=== PATIENT | male | born 1990 | race Caucasian/White ===

== ENCOUNTER 2022-07-28 06:34 | Emergency (ER) | payer OTHER ==
[2022-07-28] MEDS ORDERED: Lidocaine 1% PF 2 ML SDV ONE (10:05)
[2022-07-28] MEDS ORDERED: Doxycycline 100 MG Cap PO ONE (10:05)
[2022-07-28] MEDS ORDERED: cefTRIAXone 250 MG Vial IM ONE (10:05)
== END 2022-07-28 10:25 ==
LOC: MW.ED 06:34
DX: N50.811 Right testicular pain (principal)
CPT/HCPCS: 76870; 93976; 96372; 99284; A9270; J0696; 99283

== ENCOUNTER 2022-08-28 09:01 | Emergency (ER) | payer OTHER ==
[2022-08-28] MEDS ORDERED: Diphtheria,Pertussis(Acell),Tetanus Vaccine 0.5 ML Syringe IM ONE (09:18)
[2022-08-28 10:23] LABS: CORONAVIRUS COVID-19 NAA NEGATIVE (NEGATIVE); INFLUENZA A NAA NEGATIVE (NEGATIVE); INFLUENZA B NAA NEGATIVE (NEGATIVE)
== END 2022-08-28 09:45 | disposition home or self-care (01) ==
LOC: MW.ED 09:01
DX: S61.401A Unspecified open wound of right hand, initial encounter (principal); I10 Essential (primary) hypertension; R53.83 Other fatigue; R53.81 Other malaise; Z23 Encounter for immunization; Z20.822 Contact with and (suspected) exposure to COVID-19; W23.1XXA Caught, crushed, jammed, or pinched between stationary objects, initial encounter
CPT/HCPCS: 0240U; 90471; 90715; 99283

== ENCOUNTER 2024-11-27 23:37 | Emergency (ER) | payer SELFPAY | END 2024-11-27 23:39 | disposition left against medical advice (07) | LOC: MW.ED 23:37 | DX: Z53.21 Procedure and treatment not carried out due to patient leaving prior to being seen by health care provider (principal) ==

== ENCOUNTER 2024-12-11 15:15 | Emergency (ER) | payer SELFPAY ==
[2024-12-11 15:36] LABS: BASOPHILS ABSOLUTE AUTO 0.03 K/uL (0.00-0.20); BASOPHILS PERCENT AUTO 0.5 % (0.0-1.0); EOSINOPHILS ABSOLUTE AUTO 0.02 K/uL (0.00-0.45); EOSINOPHILS PERCENT AUTO 0.3 % (0.0-6.0); HEMATOCRIT 42.1 % (42.0-52.0); HEMOGLOBIN 14.8 g/dL (14.0-18.0); IMMATURE GRAN ABSOLUTE AUTO 0.01 K/uL (0.00-0.05); IMMATURE GRAN PERCENT AUTO 0.2 % (0.0-0.4); LYMPHOCYTES ABSOLUTE AUTO 1.26 K/uL (1.00-4.80); LYMPHOCYTES PERCENT AUTO 20.5 % (24.0-44.0); MEAN CORPUSCULAR HEMOGLOBIN 31.3 pg (28.0-32.0); MEAN CORPUSCULAR HGB CONC 35.2 g/dL (32.0-36.0); MEAN PLATELET VOLUME 8.6 fL (9.4-12.4); MONOCYTES ABSOLUTE AUTO 0.27 K/uL (0.00-0.80); MONOCYTES PERCENT AUTO 4.4 % (0.0-8.0); NEUTROPHILS ABSOLUTE AUTO 4.57 K/uL (1.80-7.70); NEUTROPHILS PERCENT AUTO 74.1 % (41.0-71.0); PLATELET COUNT,PLT 251 K/uL (150-400); RED BLOOD CELL COUNT 4.73 M/uL (4.52-5.90); WHITE BLOOD CELL COUNT,WBC 6.16 K/uL (3.9-11.3)
[2024-12-11] MEDS: Sodium Chloride 0.9% 1,000 ML IV ONE (15:49)
[2024-12-11] MEDS: Ketorolac 30 MG/ML SDV IVPUSH ONE (15:49)
[2024-12-11 16:11] LABS: A/G RATIO 1.5 (0.9-1.6); ALANINE AMINOTRANSFERASE,ALT 40 IU/L (14-63); ALBUMIN 4.4 g/dL (3.4-5.0); ALKALINE PHOSPHATASE 53 U/L (46-116); ASPARTATE AMNIOTRANSFERASE,AST 42 IU/L (15-37); BILIRUBIN TOTAL 1.3 mg/dL (0.2-1.0); BLOOD UREA NITROGEN,BUN 13 mg/dL (7.0-18.0); CALCIUM 8.7 mg/dL (8.5-10.1); CARBON DIOXIDE,CO2 27.2 mmol/L (21.0-32.0); CHLORIDE,CL 103 mmol/L (98-107); CREATININE 0.8 mg/dL (0.8-1.3); EST CRCL DRUG DOSING (CG) 161.24 mL/min; GLUCOSE RANDOM 109 mg/dL (74-106); MAGNESIUM 1.9 mg/dL (1.8-2.4); POTASSIUM,K 4.1 mmol/L (3.5-5.1); PROTEIN TOTAL,TP 7.3 g/dL (6.4-8.2); SODIUM,NA 144 mmol/L (136-148)
[2024-12-11 16:12] LABS: ESTIMATED GFR 120 mL/min (>60)
[2024-12-11 16:21] LABS: INR 1.05 (0.86-1.11)
== END 2024-12-11 18:04 | disposition home or self-care (01) ==
LOC: MW.ED 15:15
DX: R07.9 Chest pain, unspecified (principal); I10 Essential (primary) hypertension; Z75.8 Other problems related to medical facilities and other health care
CPT/HCPCS: 36415; 71045; 80053; 83735; 84484; 85025; 85610; 93005; 96361; 96374; 99285; J1885; J7030